=== PATIENT | male | born 1940 | race Caucasian/White ===

== ENCOUNTER 2019-06-03 14:23 | Inpatient (IN) | payer OTHER ==
[~2019-06-03] VITALS: Ht 182.9 cm; Wt 128.4 kg
[2019-06-03 14:23] VITALS: BP_SYST 147
[2019-06-03] MEDS ORDERED: NACL 0.9% 1,000 ML IV ONE (14:30)
[2019-06-03 15:03] LABS: BASOPHILS % (AUTO) 0.3 % (0.0-2.0); EOSINOPHILS # (AUTO) 0.1 K/uL (0.0-0.4); EOSINOPHILS % (AUTO) 1.6 % (0.0-4.0); HEMATOCRIT 43.6 % (36-54); HEMOGLOBIN 14.1 g/dL (14.0-18.0); LYMPHOCYTES # (AUTO) 1.2 K/uL (1.0-5.5); LYMPHOCYTES % (AUTO) 15.9 % (20.5-51.5); MEAN CORPUSCULAR HEMOGLOBIN 27 pg (27-31); MEAN CORPUSCULAR HGB CONC 32 % (32-36); MEAN CORPUSCULAR VOLUME 84 fL (79.0-98.0); MONOCYTES # (AUTO) 0.6 K/uL (0.0-1.0); MONOCYTES % (AUTO) 8.1 % (1.7-9.3); NEUTROPHILS # (AUTO) 5.8 K/uL (1.8-7.7); NEUTROPHILS % (AUTO) 74.1 % (40.0-70.0); PLATELET COUNT (AUTO) 165 K/uL (130-430); RED BLOOD CELL COUNT(AUTO) 5.17 MIL/uL (4.2-6.2); RED CELL DISTRIBUTION WIDTH 15.1 % (9.0-15.0); WHITE BLOOD COUNT (AUTO) 7.8 K/uL (4.8-10.8)
[2019-06-03 15:26] LABS: INR 1.8 (0.80-1.20); PROTHROMBIN TIME 17.6 SECS (9.5-12.5)
[2019-06-03 15:30] LABS: BILIRUBIN,URINE NEGATIVE (NEGATIVE); BLOOD, URINE NEGATIVE (NEGATIVE); CLARITY/URINE CLEAR (CLEAR); COLOR,URINE YELLOW (YELLOW); GLUCOSE,URINE 2+ (NEGATIVE); KETONES,URINE NEGATIVE (NEGATIVE); LEUKOCYTE ESTERASE ,URINE NEGATIVE (NEGATIVE); NITRITE, URINE NEGATIVE (NEGATIVE); PROTEIN URINE NEGATIVE (NEGATIVE)
[2019-06-03 15:31] LABS: ALANINE AMINOTRANSFERASE 24 U/L (12-78); ALBUMIN 3.4 g/dL (3.4-4.8); ANION GAP 6 (5-15); ASPARTATE AMINOTRANSFERASE 12 U/L (10-37); CALCIUM 7.8 mg/dL (8.4-11.0); CHLORIDE 103 mmol/L (98-107); CREATININE 1.45 mg/dL (0.55-1.30); GLUCOSE 189 mg/dL (70-99); SODIUM SERUM 136 mmol/L (136-145); UREA NITROGEN, BLOOD 28 mg/dL (8-21)
[2019-06-03] MEDS ORDERED: FLUT1BLS3 INH (15:41)
[2019-06-03] MEDS ORDERED: ALBU2.5V7 INH (15:41)
[2019-06-03] MEDS ORDERED: IPRATROPIUM/ALBUTEROL SULFATE 3 ML AMPUL.NEB (DUONEB) INH ONE (15:45)
[2019-06-03] MEDS ORDERED: NITROGLYCERIN 1 INCH (GM) OINT. TP ONE (15:45)
[2019-06-03] MEDS ORDERED: TAMS-11 PO (15:46)
[2019-06-03] MEDS ORDERED: SERT100T PO (15:46)
[2019-06-03] MEDS ORDERED: FINA5TAB3 PO (15:46)
[2019-06-03] MEDS ORDERED: SSNOVOLOG SUBCUT (15:46)
[2019-06-03] MEDS ORDERED: LEVO5TAB13 PO (15:46)
[2019-06-03] MEDS ORDERED: GABA-531 PO (16:00)
[2019-06-03] MEDS ORDERED: INSU100V9 SQ (16:00)
[2019-06-03] MEDS ORDERED: METO25TA3 PO (16:00)
[2019-06-03] MEDS ORDERED: LOSA50TA3 PO (16:00)
[2019-06-03] MEDS ORDERED: ALBMDI INH (16:00)
[2019-06-03] MEDS ORDERED: OMEP40CA33 PO (16:00)
[2019-06-03] MEDS ORDERED: TRAM50TA2 PO (16:00)
[2019-06-03] MEDS ORDERED: BUDE6HFA INH (16:00)
[2019-06-03] MEDS ORDERED: LIP10 PO (16:00)
[2019-06-03] MEDS ORDERED: DULA0.75 SQ (16:00)
[2019-06-03] MEDS ORDERED: FOLI-43 PO (16:00)
[2019-06-03] MEDS ORDERED: METH-364 PO (16:02)
[2019-06-03] MEDS ORDERED: FURO-150 PO (16:02)
[2019-06-03] MEDS ORDERED: SPIR25TA PO (16:05)
[2019-06-03] MEDS ORDERED: WARF3TAB2 PO (16:05)
[2019-06-03 16:44] LABS: BACTERIA,URINE FEW /HPF (None Seen); MUCUS,URINE None Seen /LPF (None Seen); RBC,URINE NONE SEEN /HPF (0-3); WBC,URINE NONE SEEN /HPF (0-3)
[2019-06-03] MEDS ORDERED: IPRATROPIUM BROM 0.5 MG/2.5 ML VIAL.NEB (ATROVENT) INH PRN (19:15)
[2019-06-03] MEDS ORDERED: DEXTROSE 50% JECT 50 ML DISP.SYRIN IVP PRN (19:15)
[2019-06-03] MEDS ORDERED: ALBUTEROL SULFATE 0.083% 2.5 MG/3 ML VIAL.NEB INH PRN (19:15)
[2019-06-03 19:21] VITALS: BP_SYST 120
[2019-06-03] MEDS ORDERED: INSULIN GLARGINE 100 UNITS/ML 10 ML VIAL SQ SCH (21:00)
[2019-06-03] MEDS: ALBUTEROL SULFATE 0.083% 2.5 MG/3 ML VIAL.NEB INH SCH (23:21)
[2019-06-03] MEDS: IPRATROPIUM BROM 0.5 MG/2.5 ML VIAL.NEB (ATROVENT) INH SCH (23:21)
[2019-06-03] MEDS ORDERED: WARFARIN SODIUM 3 MG TABLET ONE (23:52)
[2019-06-03] MEDS: WARFARIN SODIUM 3 MG TABLET PO SCH (23:55)
[2019-06-04] MEDS: INSULIN REGULAR, HUMAN 100 UNITS/ML, 10 ML VIAL (humuLIN R) SUBCUT PRN ×4 (00:01→17:31)
[2019-06-04 00:07] VITALS: BP_SYST 143
[2019-06-04 05:30] VITALS: BP_SYST 159
[2019-06-04 07:14] LABS: INR 1.6 (0.80-1.20); PROTHROMBIN TIME 16.2 SECS (9.5-12.5)
[2019-06-04] MEDS: ALBUTEROL SULFATE 0.083% 2.5 MG/3 ML VIAL.NEB INH SCH ×4 (07:23→23:25)
[2019-06-04] MEDS: IPRATROPIUM BROM 0.5 MG/2.5 ML VIAL.NEB (ATROVENT) INH SCH ×4 (07:23→23:25)
[2019-06-04 08:00] VITALS: BP_SYST 142
[2019-06-04] MEDS: ATORVASTATIN 10 MG TABLET PO SCH (08:30)
[2019-06-04] MEDS: GABAPENTIN 300 MG CAPSULE PO SCH (08:30)
[2019-06-04] MEDS: PANTOPRAZOLE SODIUM 40 MG TAB PO SCH (08:31)
[2019-06-04] MEDS: SPIRONOLACTONE 25 MG TABLET (ALDACTONE) PO SCH (08:31)
[2019-06-04] MEDS: TAMSULOSIN HCL 0.4 MG CAP PO SCH (08:31)
[2019-06-04] MEDS: traMADol HCL HCL 50 MG TABLET (ULTRAM) PO SCH (08:31)
[2019-06-04] MEDS: SERTRALINE HCL 50 MG TABLET PO SCH (08:31)
[2019-06-04] MEDS: FOLIC ACID 1 MG TABLET PO SCH (08:31)
[2019-06-04] MEDS: METOPROLOL SUCCINATE 25 MG TAB.SR.24H (TOPROL XL) PO SCH (08:32)
[2019-06-04] MEDS: FUROSEMIDE 20 MG TABLET PO SCH (08:32)
[2019-06-04] MEDS: LOSARTAN POTASSIUM 50 MG TABLET (COZAAR) PO SCH (08:32)
[2019-06-04] MEDS ORDERED: INSULIN GLARGINE 100 UNITS/ML 10 ML VIAL SQ SCH ×2 (09:00→21:00)
[2019-06-04] MEDS: FINASTERIDE 5 MG TABLET (PROSCAR) PO SCH (10:58)
[2019-06-04 12:00] VITALS: BP_SYST 162
[2019-06-04 16:00] VITALS: BP_SYST 142
[2019-06-04] MEDS: WARFARIN SODIUM 3 MG TABLET PO SCH (18:20)
[2019-06-04 20:00] VITALS: BP_SYST 127
[2019-06-05] VITALS: BP_SYST 146
[2019-06-05] MEDS: INSULIN REGULAR, HUMAN 100 UNITS/ML, 10 ML VIAL (humuLIN R) SUBCUT PRN ×2 (00:16→11:41)
[2019-06-05] MEDS: ALBUTEROL SULFATE 0.083% 2.5 MG/3 ML VIAL.NEB INH SCH ×3 (03:00→11:17)
[2019-06-05] MEDS: IPRATROPIUM BROM 0.5 MG/2.5 ML VIAL.NEB (ATROVENT) INH SCH ×3 (03:00→11:17)
[2019-06-05 07:16] LABS: BASOPHILS % (AUTO) 0.3 % (0.0-2.0); EOSINOPHILS # (AUTO) 0.2 K/uL (0.0-0.4); EOSINOPHILS % (AUTO) 2.6 % (0.0-4.0); HEMATOCRIT 42.1 % (36-54); HEMOGLOBIN 13.7 g/dL (14.0-18.0); LYMPHOCYTES # (AUTO) 1.4 K/uL (1.0-5.5); LYMPHOCYTES % (AUTO) 17.2 % (20.5-51.5); MEAN CORPUSCULAR HEMOGLOBIN 27 pg (27-31); MEAN CORPUSCULAR HGB CONC 33 % (32-36); MEAN CORPUSCULAR VOLUME 83 fL (79.0-98.0); MONOCYTES # (AUTO) 0.7 K/uL (0.0-1.0); MONOCYTES % (AUTO) 8.6 % (1.7-9.3); NEUTROPHILS # (AUTO) 5.9 K/uL (1.8-7.7); NEUTROPHILS % (AUTO) 71.3 % (40.0-70.0); PLATELET COUNT (AUTO) 144 K/uL (130-430); RED BLOOD CELL COUNT(AUTO) 5.05 MIL/uL (4.2-6.2); RED CELL DISTRIBUTION WIDTH 15.6 % (9.0-15.0); WHITE BLOOD COUNT (AUTO) 8.2 K/uL (4.8-10.8)
[2019-06-05 07:28] LABS: ALANINE AMINOTRANSFERASE 17 U/L (12-78); ANION GAP 7 (5-15); ASPARTATE AMINOTRANSFERASE 12 U/L (10-37); CALCIUM 8.6 mg/dL (8.4-11.0); CHLORIDE 105 mmol/L (98-107); CREATININE 1.22 mg/dL (0.55-1.30); GLUCOSE 108 mg/dL (70-99); POTASSIUM 4.2 mmol/L (3.5-5.1); SODIUM SERUM 136 mmol/L (136-145); TOTAL BILIRUBIN 1.3 mg/dL (0.0-1.0); UREA NITROGEN, BLOOD 19 mg/dL (8-21)
[2019-06-05] MEDS ORDERED: GLUCOSE 15 GM GEL (in 37.5 GM TUBE) PO PRN (07:30)
[2019-06-05] MEDS ORDERED: DEXTROSE 50% JECT 50 ML DISP.SYRIN IVP PRN (07:30)
[2019-06-05 07:49] LABS: INR 1.6 (0.80-1.20); PROTHROMBIN TIME 15.6 SECS (9.5-12.5)
[2019-06-05] MEDS: SERTRALINE HCL 50 MG TABLET PO SCH (08:27)
[2019-06-05] MEDS: GABAPENTIN 300 MG CAPSULE PO SCH (08:28)
[2019-06-05] MEDS: TAMSULOSIN HCL 0.4 MG CAP PO SCH (08:28)
[2019-06-05] MEDS: ATORVASTATIN 10 MG TABLET PO SCH (08:28)
[2019-06-05] MEDS: PANTOPRAZOLE SODIUM 40 MG TAB PO SCH (08:28)
[2019-06-05] MEDS: FINASTERIDE 5 MG TABLET (PROSCAR) PO SCH (08:28)
[2019-06-05] MEDS: FOLIC ACID 1 MG TABLET PO SCH (08:28)
[2019-06-05] MEDS: METOPROLOL SUCCINATE 25 MG TAB.SR.24H (TOPROL XL) PO SCH (08:29)
[2019-06-05] MEDS: traMADol HCL HCL 50 MG TABLET (ULTRAM) PO SCH (08:29)
[2019-06-05] MEDS: SPIRONOLACTONE 25 MG TABLET (ALDACTONE) PO SCH (08:30)
[2019-06-05] MEDS: LOSARTAN POTASSIUM 50 MG TABLET (COZAAR) PO SCH (08:30)
[2019-06-05] MEDS: FUROSEMIDE 20 MG TABLET PO SCH (08:30)
[2019-06-05] MEDS ORDERED: LEVOFLOXACIN 500 MG/D5W 100 ML IV SCH (10:00)
[2019-06-05 11:10] LABS: INR 1.5 (0.80-1.20); PROTHROMBIN TIME 14.9 SECS (9.5-12.5)
[2019-06-05 11:16] VITALS: BP_SYST 149
[2019-06-05] MEDS ORDERED: LEVO500T89 PO (11:53)
[2019-06-05 13:31] VITALS: BP_SYST 95
== END 2019-06-05 15:45 | disposition home or self-care (01) | DRG 917 ==
LOC: SED 14:23 → STU 16:34
PROVIDERS: ADMIT Internal Medicine Hospice and Palliative Medicine; ATTEND Internal Medicine Hospice and Palliative Medicine
DX: T59.811A Toxic effect of smoke, accidental (unintentional), initial encounter (principal); J18.9 Pneumonia, unspecified organism; J44.1 Chronic obstructive pulmonary disease with (acute) exacerbation; I48.20 Chronic atrial fibrillation, unspecified; J45.901 Unspecified asthma with (acute) exacerbation; J44.0 Chronic obstructive pulmonary disease with (acute) lower respiratory infection; I13.0 Hypertensive heart and chronic kidney disease with heart failure and stage 1 through stage 4 chronic kidney disease, or unspecified chronic kidney disease; E11.51 Type 2 diabetes mellitus with diabetic peripheral angiopathy without gangrene; E66.9 Obesity, unspecified; E78.5 Hyperlipidemia, unspecified; F41.1 Generalized anxiety disorder; I25.10 Atherosclerotic heart disease of native coronary artery without angina pectoris; I50.9 Heart failure, unspecified; J70.5 Respiratory conditions due to smoke inhalation; M19.90 Unspecified osteoarthritis, unspecified site; Z96.642 Presence of left artificial hip joint; E11.22 Type 2 diabetes mellitus with diabetic chronic kidney disease; N18.3 Chronic kidney disease, stage 3 (moderate); Y92.89 Other specified places as the place of occurrence of the external cause; Z79.01 Long term (current) use of anticoagulants; Z68.38 Body mass index [BMI] 38.0-38.9, adult; Z79.899 Other long term (current) drug therapy; Z95.5 Presence of coronary angioplasty implant and graft
CPT/HCPCS: 36415; 71045; 80053; 81000-TC; 82962; 83036; 83605; 83880; 84484; 85025; 85610-TC; 85730-TC; 87040-TC; 87086; 93005; 93306; 94640; 94760; 96360; 99285; G0378; J1815; J1956; J7120; J7613